=== PATIENT | male | born 1950 | race Caucasian/White ===

== ENCOUNTER 2018-04-15 16:34 | Emergency (ER) | payer MEDICARE ==
[~2018-04-15] VITALS: Ht 175.3 cm; Wt 74.8 kg
[2018-04-15] MEDS ORDERED: NACL 0.9% 1,000 ML IV ONE (16:43)
[2018-04-15 16:44] VITALS: BP_SYST 180
[2018-04-15] MEDS ORDERED: ASPIRIN 81 MG TAB.CHEW PO ONE (16:45)
[2018-04-15] MEDS ORDERED: ONDANSETRON HCL 4 MG/2 ML VIAL IVP ONE (16:45)
[2018-04-15 17:26] LABS: WHITE BLOOD COUNT (AUTO) 7.1 K/uL (4.8-10.8)
[2018-04-15 17:27] LABS: HEMATOCRIT 31.4 % (36-54); HEMOGLOBIN 10.3 g/dL (14.0-18.0); MEAN CORPUSCULAR HEMOGLOBIN 28 pg (27-31); MEAN CORPUSCULAR HGB CONC 33 % (32-36); MEAN CORPUSCULAR VOLUME 85 fL (79.0-98.0); NEUTROPHILS % (AUTO) 72.6 % (40.0-70.0); PLATELET COUNT (AUTO) 148 K/uL (130-430); RED BLOOD CELL COUNT(AUTO) 3.69 MIL/uL (4.2-6.2); RED CELL DISTRIBUTION WIDTH 18.4 % (9.0-15.0)
[2018-04-15 17:28] LABS: BASOPHILS # (AUTO) 0.1 K/uL (0.0-0.2); BASOPHILS % (AUTO) 0.8 % (0.0-2.0); EOSINOPHILS # (AUTO) 0.1 K/uL (0.0-0.4); LYMPHOCYTES # (AUTO) 1.2 K/uL (1.0-5.5); LYMPHOCYTES % (AUTO) 16.4 % (20.5-51.5); MONOCYTES # (AUTO) 0.7 K/uL (0.0-1.0); MONOCYTES % (AUTO) 9.2 % (1.7-9.3); NEUTROPHILS # (AUTO) 5.2 K/uL (1.8-7.7)
[2018-04-15 17:37] LABS: INR 1.5 (0.80-1.20); PROTHROMBIN TIME 14.8 SECS (9.5-12.5)
[2018-04-15 17:46] LABS: CALCIUM 7.6 mg/dL (8.4-11.0); CREATININE 0.62 mg/dL (0.55-1.30); POTASSIUM 3.2 mmol/L (3.5-5.1)
[2018-04-15 17:52] LABS: ALBUMIN 3.3 g/dL (3.4-4.8); TOTAL BILIRUBIN 0.8 mg/dL (0.0-1.0)
[2018-04-15] MEDS ORDERED: MAG HYDROX/AL HYDROX/SIMETH 30 ML, BELLADONNA ALKALOIDS/PHENOBARB 10 ML, LIDOCAINE VISC... PO ONE ×3 (18:00)
[2018-04-15] MEDS ORDERED: KCL 20 mEq in D5/0.45NS 1000mL 1,000 ML IV ONE (18:15)
[2018-04-15] MEDS ORDERED: POTASSIUM CHLORIDE 20 MEQ/PKT PACKET PO ONE (18:15)
[2018-04-15 18:34] LABS: BILIRUBIN,URINE NEGATIVE (NEGATIVE); BLOOD, URINE NEGATIVE (NEGATIVE); CLARITY/URINE CLEAR (CLEAR); COLOR,URINE YELLOW (YELLOW); GLUCOSE,URINE NEGATIVE (NEGATIVE); KETONES,URINE TRACE (NEGATIVE); LEUKOCYTE ESTERASE ,URINE NEGATIVE (NEGATIVE); NITRITE, URINE NEGATIVE (NEGATIVE); PH,URINE 8.5 (5.0-8.0); PROTEIN URINE NEGATIVE (NEGATIVE); UROBILINOGEN,URINE 0.2 (0.2-1.0)
[2018-04-15 20:52] VITALS: BP_SYST 146
== END 2018-04-15 20:52 | disposition short-term general hospital (02) ==
LOC: SED 16:34
DX: E87.1 Hypo-osmolality and hyponatremia (principal); E87.6 Hypokalemia; R07.89 Other chest pain; I48.2 Chronic atrial fibrillation; K21.9 Gastro-esophageal reflux disease without esophagitis; Z86.69 Personal history of other diseases of the nervous system and sense organs
CPT/HCPCS: 36415; 71045; 80053; 81003; 82550; 83605; 83690; 84484; 85025; 85610; 85730; 87040; 93005; 96361; 96365; 96375; 99285; J2001; J2405; J7030